=== PATIENT | female | born 1995 | race Caucasian/White ===

== ENCOUNTER 2021-06-30 08:22 | Emergency (ER) | payer OTHER ==
[~2021-06-30 08:22] MED LIST: FOLIC ACID 1 MG1 MG PO; HUMIBID LA TAB600 MG PO; KEFLEX500 MG PO; PREDNISONE10 MG PO; THIAMINE HCL100 MG PO; ZOFRAN4 MG PO
[2021-06-30 15:01] LABS: HEMOGLOBIN 13.8 gm/dl (12.3-15.3); RED BLOOD COUNT 5.32 M/UL (4.00-5.10); WHITE BLOOD COUNT 4.8 K/UL (4.5-11.0)
[2021-06-30 15:43] LABS: BUN/CREATININE RATIO 13 (0-10)
[2021-06-30] MEDS ORDERED: PYRIDIUM200 MG PO (17:26)
[2021-06-30] MEDS ORDERED: ONDANSETRON ODT4 MG SL (17:26)
[2021-06-30] MEDS ORDERED: CEFUROXIME500 MG PO (17:26)
[2021-06-30] MEDS ORDERED: NAPROSYN500 MG PO (17:26)
== END 2021-06-30 18:10 | disposition home or self-care (01) ==
LOC: ER1 08:22
PROVIDERS: Physician Assistant
DX: N12 Tubulo-interstitial nephritis, not specified as acute or chronic (principal); F17.200 Nicotine dependence, unspecified, uncomplicated
CPT/HCPCS: 71046; 80053; 81001; 83690; 84703; 85025; 87086; 99284

== ENCOUNTER 2021-09-21 07:04 | Emergency (ER) | payer OTHER ==
[~2021-09-21 07:04] MED LIST changes: +CEFUROXIME500 MG PO; +NAPROSYN500 MG PO; +ONDANSETRON ODT4 MG SL; +PYRIDIUM200 MG PO
[2021-09-21 08:13] LABS: HEMOGLOBIN 12.5 gm/dl (12.3-15.3); RED BLOOD COUNT 5.15 M/UL (4.00-5.10); WHITE BLOOD COUNT 6.1 K/UL (4.5-11.0)
[2021-09-21 08:22] LABS: BUN/CREATININE RATIO 9 (0-10)
[2021-09-21] MEDS ORDERED: MACROBID 100 M100 M1 PO (10:39)
== END 2021-09-21 11:17 | disposition home or self-care (01) ==
LOC: ER1 07:04
PROVIDERS: Nurse Practitioner
DX: N39.0 Urinary tract infection, site not specified (principal); R16.0 Hepatomegaly, not elsewhere classified; F17.210 Nicotine dependence, cigarettes, uncomplicated
CPT/HCPCS: 71045; 80053; 81001; 82550; 82553; 83690; 83874; 84484; 84703; 85025; 93005; 96374; 96375; 99284; J1885; J2405; J7030; Q9967

== ENCOUNTER 2021-09-23 16:33 | Emergency (ER) | payer OTHER ==
[~2021-09-23 16:33] MED LIST changes: +MACROBID 100 M100 M1 PO
[2021-09-23 17:04] LABS: HEMOGLOBIN 12.1 gm/dl (12.3-15.3); RED BLOOD COUNT 4.82 M/UL (4.00-5.10); WHITE BLOOD COUNT 7.7 K/UL (4.5-11.0)
[2021-09-23 17:29] LABS: BUN/CREATININE RATIO 4 (0-10)
[2021-09-23] MEDS ORDERED: PHENERGAN 25 MG25 M1 PO (23:26)
[2021-09-23] MEDS ORDERED: REGLAN10 MG PO (23:26)
== END 2021-09-23 23:52 | disposition home or self-care (01) ==
LOC: ER1 16:33
PROVIDERS: Physician Assistant
DX: R16.0 Hepatomegaly, not elsewhere classified (principal); G47.00 Insomnia, unspecified; R63.0 Anorexia; R42 Dizziness and giddiness; Z20.822 Contact with and (suspected) exposure to COVID-19
CPT/HCPCS: 80053; 82550; 82553; 83874; 84484; 85025; 93005; 99285; U0002

== ENCOUNTER 2021-09-29 09:12 | Emergency (ER) | payer OTHER ==
[~2021-09-29 09:12] MED LIST changes: +PHENERGAN 25 MG25 M1 PO; +REGLAN10 MG PO
[2021-09-29 09:59] LABS: HEMOGLOBIN 12.1 gm/dl (12.3-15.3); RED BLOOD COUNT 4.97 M/UL (4.00-5.10); WHITE BLOOD COUNT 5.1 K/UL (4.5-11.0)
[2021-09-29 10:15] LABS: BORDETELLA PARAPERTUSSIS Not Detected (Not Detectd); BORDETELLA PERTUSSIS Not Detected (Not Detectd); CHLAMYDIA PNEUMONIAE Not Detected (Not Detectd); CORONAVIRUS HKU1 Not Detected (Not Detectd); CORONAVIRUS NL63 Not Detected (Not Detectd); CORONAVIRUS OC43 Not Detected (Not Detectd); CORONOAVIRUS 229E Not Detected (Not Detectd); HUMAN METAPNEUMOVIRUS Not Detected (Not Detectd); HUMAN RHINOVIRUS/ENTEROVIRUS Not Detected (Not Detectd); INFLUENZA A Not Detected (Not Detectd); INFLUENZA B Not Detected (Not Detectd); MYCOPLASMA PNEUMONIAE Not Detected (Not Detectd); PARAINFLUENZA VIRUS 1 Not Detected (Not Detectd); PARAINFLUENZA VIRUS 2 Not Detected (Not Detectd); PARAINFLUENZA VIRUS 3 Not Detected (Not Detectd); PARAINFLUENZA VIRUS 4 Not Detected (Not Detectd); RESPIRATORY SYNCYTIAL VIRUS Not Detected (Not Detectd)
[2021-09-29 10:27] LABS: BUN/CREATININE RATIO 13 (0-10)
[2021-09-29 11:18] LABS: SARS-CoV-2 NOT DETECTED (Not Detectd)
== END 2021-09-29 15:45 | disposition home or self-care (01) ==
LOC: ER1 09:12
PROVIDERS: Emergency Medicine; Physician Assistant
DX: R10.9 Unspecified abdominal pain (principal); R91.1 Solitary pulmonary nodule; F17.200 Nicotine dependence, unspecified, uncomplicated; Z20.822 Contact with and (suspected) exposure to COVID-19
CPT/HCPCS: 80053; 81001; 83605; 83690; 84703; 85025; 87040; 87633; 96374; 96375; 99284; J2270; J2405; J7030; Q9967

== ENCOUNTER → 2021-10-04 | Outpatient (CLI) | payer OTHER | LOC: MRI 12:29 | DX: K76.9 Liver disease, unspecified (principal) | CPT/HCPCS: 74183; A9577 ==

== ENCOUNTER → 2021-10-26 | Outpatient (CLI) | payer OTHER | LOC: US 08:47 | DX: K82.9 Disease of gallbladder, unspecified (principal) | CPT/HCPCS: 76705 ==

== ENCOUNTER → 2022-01-24 | Day surgery (SDC) | payer OTHER ==
[~2022-01-24] MED LIST changes: +BUSPAR 10MG10 MG PO; +COLACE 100MG C100 MG PO; +HYDROCODON-ACE1 EAC4 PO; +IBUPROFEN800 MG PO
[2022-01-24 08:25] LABS: HEMOGLOBIN 12.8 gm/dl (12.3-15.3); RED BLOOD COUNT 4.91 M/UL (4.00-5.10)
== END | disposition home or self-care (01) ==
LOC: OR 07:39
PROVIDERS: Obstetrics & Gynecology
DX: O02.1 Missed abortion (principal); F17.210 Nicotine dependence, cigarettes, uncomplicated; Z20.822 Contact with and (suspected) exposure to COVID-19; Z79.899 Other long term (current) drug therapy
CPT/HCPCS: 36415; 81001; 85025; J1100; J1170; J2001; J2250; J2405; J2704; J2795; J3010; J7120; U0002

== ENCOUNTER → 2022-05-18 | Outpatient (CLI) | payer OTHER | LOC: US 05-17 10:30 | DX: R10.11 Right upper quadrant pain (principal) | CPT/HCPCS: 76705 ==